=== PATIENT | male | born 1990 | race Caucasian/White ===

== ENCOUNTER 2017-11-12 03:15 | Inpatient (IN) | payer OTHER ==
[2017-11-12 04:00] LABS: Band 10 % (5-11); Hemoglobin 14.2 g/dL (14.0-18.0); Lymphocytes 17 % (21-51); MDiff Complete? YES; Mean Corpuscular Hemoglobin 31.6 pg (27.0-31.0); Mean Platelet Volume 6.4 fL (7.4-10.4); Monocytes 9 % (0-10); Neutrophil 64 % (42-75); PLT Morphology Comment Appears Adequate; Platelet Count 222 thou/uL (130-400); RBC Distribution Width 12.8 % (11.5-14.5); White Blood Cell (WBC) Count 8.9 thou/uL (4.8-10.8)
[2017-11-12 04:17] LABS: ALT (SGPT) 15 U/L (8-55); AST (SGOT) 20 U/L (5-34); Albumin 3.5 g/dL (3.5-5.0); Alkaline Phosphatase 105 U/L (40-150); Anion Gap 13 mmol/L (10-20); BUN (Urea Nitrogen) 11 mg/dL (8.9-20.6); Bilirubin, Total Less than 0.2 mg/dL (0.2-1.2); Calc. Creatinine Clearance 0 mL/min (70-130); Calcium 8.7 mg/dL (7.8-10.44); Carbon Dioxide 33 mmol/L (22-29); Chloride 88 mmol/L (98-107); Estimated GFR-MDRD Greater than 90; Globulin 3.9 g/dL (2.4-3.5); Glucose 111 mg/dL (70-105); Potassium 4.1 mmol/L (3.5-5.1); Protein, Total 7.4 g/dL (6.0-8.3); Sodium 130 mmol/L (136-145)
[2017-11-12] MEDS ORDERED: Piperacillin/Tazobactam 4.5 GM in Sodium Chloride 0.9% 100 ML IVPB SCH (05:15)
[2017-11-12] MEDS ORDERED: methylPREDNISolone Sod Succ/PF 125 MG/2 ML VIAL ONE (05:25)
[2017-11-12] MEDS ORDERED: Water For Inject, Bacteriostat 30 ML ONE (05:26)
[2017-11-12] MEDS ORDERED: Azithromycin 500 MG in Sodium Chloride 0.9% 250 ML 250 ML IVPB SCH (06:15)
[2017-11-12] MEDS ORDERED: Oseltamivir 75 MG CAP PO SCH (07:00)
[2017-11-12 08:52] VITALS: BMI 19.4
--- NOTE | 2017-11-12 09:58 | RAD ---
SINGLE VIEW OF THE CHEST: Comparison: 12-15-16 History: Cough. History of cystic fibrosis. FINDINGS: Single view of the chest shows a normal sized cardiomediastinal silhouette. Flattening of the hemidia phragms and increased interstitial markings are stable. There is no evidence of consolidation, mass, or pleural effusions. IMPRESSION: 1. No evidence of acute cardiopulmonary disease. 2. Flattening of the hemidiaphragms and increased interstitial markings are consistent with patient's diagnosis of cystic fibrosis. POS: DEB
[2017-11-12] MEDS ORDERED: Ondansetron HCl/PF 4 MG/2 ML Vial IVP PRN (12:07)
[2017-11-12] MEDS ORDERED: Ondansetron ODT 4 MG TAB PO PRN (12:07)
[2017-11-12] MEDS ORDERED: cefTRIAXone\\ROCEPHIN 1 GM in Sodium Chloride 0.9% 100 ML IVPB SCH (12:07)
[2017-11-12] MEDS ORDERED: Acetaminophen 650 MG Suppository PR PRN (12:07)
--- NOTE | 2017-11-12 14:21 | HP ---
DATE OF ADMISSION: 11/12/2017 PRIMARY CARE PROVIDER: [place] [facility]. CHIEF COMPLAINT: Shortness of breath and cough. HISTORY OF PRESENT ILLNESS: This is a 27-year-old male currently incarcerated at the [facility] unit who presented to the [facility] complaining of increased cough, congestion, and fever over the last 3 days. The patient became concerned when his shortness of breath worsened in the context of kn own cystic fibrosis. The patient states he generally has some type of lung infection once a year, us ually in the winter time requiring antibiotic therapy. The patient states he did receive the influen za and pneumonia vaccines and thought that he possibly could ride out the illness on his own. The pa lee denies any recent steroid exposure or recent antibiotic prescription. The patient denies any s pecific change to his chronic medication regimen. 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 The patient does admit to some body aches, general malai se and was evaluated in the [facility] at which point the patient was noted hypoxic on room air, place d on oxygen supplementation at 2-3 liters per minute. The patient's O2 saturation increased into the mid 90% range on 3 liters by nasal cannula. The patient received bronchodilator therapy with DuoNeb , Tylenol and was referred to [facility] Emergency Room for evaluation. Chest imaging perfo rmed in the emergency room showed chronic changes in bilateral lung jeffries consistent with cystic fib rosis. The patient was noted with a temperature of 99.2 degrees Fahrenheit with influenza A and B an tigen screen positive for influenza A. The patient received Tamiflu 75 mg x1 dose in addition to Zit hromax, Zosyn and Solu-Medrol. PAST MEDICAL HISTORY: 1. Cystic fibrosis. 2. Incarceration. 3. History of marijuana use. PAST SURGICAL HISTORY: Status post hernia repair. CURRENT MEDICATIONS: 1. Proventil HFA 2 puffs inhaled q.6 hours p.r.n. 2. Benzoyl peroxide 5% gel 1 application topically daily. 3. Calcium carbonate 1 tablet p.o. t.i.d. 4. Pulmozyme 2.5 mg inhaled b.i.d. 5. Atrovent HFA 2 puffs inhaled q.i.d. 6. Loratadine 10 mg p.o. daily. 7. Dulera 200 mcg/5 mcg 2 puffs inhaled b.i.d. 8. Multivitamin 1 tab p.o. daily. 9. Omeprazole 40 mg one tab p.o. daily. 10. Creon DR 12,000 one capsule p.o. t.i.d. with meals. 11. Hypersaline solution 4 mL inhaled b.i.d. ALLERGIES: To CIPROFLOXACIN, IBUPROFEN, DEMEROL. FAMILY HISTORY: No inheritable diseases per patient report. SOCIAL HISTORY: History of marijuana use. No current tobacco or alcohol use. Currently, incarcerat ed at the [facility]. REVIEW OF SYSTEMS: The following complete review of systems was negative, unless otherwise mentioned in the HPI or below: Constitutional: Weight loss or gain, ability to conduct usual activities. Skin: Rash, itching. Eyes: Double vision, pain. ENT/Mouth: Nose bleeding, neck stiffness, pain, tenderness. Cardiovascular: Palpitations, dyspnea on exertion, orthopnea. Respiratory: Shortness of breath, wheezing, cough, hemoptysis, fever or night sweats. Gastrointestinal: Poor appetite, abdominal pain, heartburn, nausea, vomiting, constipation, or diarr hea. Genitourinary: Urgency, frequency, dysuria, nocturia. Musculoskeletal: Pain, swelling. Neurologic/Psychiatric: Anxiety, depression. Allergy/Immunologic: Skin rash, bleeding tendency. PHYSICAL EXAMINATION: VITAL SIGNS: On admission, blood pressure 123/80, pulse 83, respiratory rate 19, temperature 99.2 de grees Fahrenheit, O2 saturation 95% on 2 liters per minute by nasal cannula. GENERAL APPEARANCE: This is a 27-year-old male, alert and oriented x3, pleasant, conversan t, in no acute distress. HEENT: Pupils are equal, round, and reactive to light and accommodation. Extraocular muscles are in tact. No scleral icterus, no conjunctival injection. Nares patent. OP is clear. Teeth in fair rep air. NECK: Supple, no cervical adenopathy, no thyromegaly, no carotid bruits, no JVD appreciated. Cervic al spine with full active and passive range of motion. CHEST: Diminished breath sounds in the bases bilaterally. Occasional scattered coarse breath sounds . CARDIOVASCULAR: S1, S2, without noted murmur. ABDOMEN: Flat, soft, nontender, nondistended. Bowel sounds are positive in all four quadrants. The re is no hepatosplenomegaly, no abdominal bruits, no rebound or guarding appreciated. EXTREMITIES: Warm and dry with fair turgor. No clubbing, cyanosis or asymmetric edema appreciated. Pulses palpable distally at the dorsalis pedis, posterior tibial, and popliteal arteries bilaterally . Capillary refill less than 2 seconds. NEUROLOGIC: Cranial nerves II through XII are grossly intact. No focal or lateralizing signs apprec iated. PERTINENT LABORATORY DATA AND X-RAY FINDINGS: Sodium 130, potassium 4.1, chloride 88, CO2 33, BUN 11 , creatinine 0.75, glucose 111, calcium 8.7. LFTs within normal limits. Albumin 3.5. CBC showed a white blood cell count of 8.9, hemoglobin 14, hematocrit 43, MCV 96, platelet count 222 with 64% neut rophils. Influenza A antigen positive on 11/12/2017. Portable chest x-ray dated 11/12/2017 showed c hronic changes in bilateral lung jeffries consistent with cystic fibrosis. EKG dated 11/12/2017 by my interpretation shows sinus mechanism with heart rate in the 80s. Attenuated R waves noted in the pre cordial leads. Normal axis. No acute ST-T wave changes appreciated. ASSESSMENT AND PLAN: 1. Acute hypoxic respiratory failure, mild. The patient will be admitted to the medical floor. We will continue oxygen supplementation to maintain O2 saturations greater than or equal to 90%. Contin ue bronchodilator therapy with DuoNeb q.4 hours. Suspect secondarily to #2. Continue general pulmon nilesh supportive measures. 2. Influenza A positive. Continue Tamiflu 75 mg p.o. b.i.d. Respiratory isolation. We will provid e empiric antibiotic coverage with IV Rocephin 1 gram q.24 hours with additional Zithromax 500 mg IV q.24 hours. 3. Cystic fibrosis. We will continue treatment as outlined in #1 and #2. Resume home regimen of Du carolee two puffs inhaled b.i.d. Continue Pulmozyme 2.5 mg inhaled b.i.d. 4. Hyponatremia. Chronic secondarily to cystic fibrosis. We will continue serial monitoring and re peat sodium level in the a.m. 5. Prophylaxis. Sequential compression devices while in bed. Pepcid 20 mg p.o. b.i.d. 6. Code status is full. Surrogate medical decision maker is [place] [facility].
[2017-11-12] MEDS: cefTRIAXone\\ROCEPHIN 1 GM, Syringe 0.4 ML in Sterile Water 9.6 ML SLOW IVP SCH (14:30)
[2017-11-12] MEDS: Calcium Carbonate + Vit D 1 TAB PO SCH ×2 (16:13→19:58)
[2017-11-12] MEDS: Benzonatate 100 MG CAP PO PRN (16:13)
[2017-11-12] MEDS: Acetaminophen 325 MG TAB PO PRN (16:45)
[2017-11-12] MEDS: Pancrelipase DR 12000 1 CAP PO SCH (16:46)
[2017-11-12] MEDS ORDERED: Pancrelipase DR 12000 1 CAP PO SCH (17:00)
[2017-11-12] MEDS: Famotidine 20 MG TAB PO SCH (19:58)
[2017-11-12] MEDS: Oseltamivir 75 MG CAP PO SCH (19:59)
[2017-11-12] MEDS ORDERED: DORNASE ALFA 2.5 MG NEB SCH (21:00)
[2017-11-12] MEDS ORDERED: [UNRECOGNIZED DRUG - OTHER] NEB SCH (21:00)
[2017-11-12] MEDS ORDERED: SODIUM CHLORIDE FOR INHALATION 7% NEB SCH (21:00)
[2017-11-12] MEDS: Mometasone/Formoterol 120 PUFF INHALER INH SCH (21:08)
[2017-11-13] MEDS: Acetaminophen 325 MG TAB PO PRN ×4 (00:28→20:34)
[2017-11-13 05:19] LABS: Band 17 % (5-11); Hemoglobin 13.7 g/dL (14.0-18.0); Lymphocytes 23 % (21-51); MDiff Complete? YES; Mean Corpuscular HGB CONC 31.1 g/dL (32.0-36.0); Mean Corpuscular Hemoglobin 30.5 pg (27.0-31.0); Mean Platelet Volume 6.6 fL (7.4-10.4); Monocytes 13 % (0-10); Neutrophil 46 % (42-75); Platelet Count 221 thou/uL (130-400); RBC Distribution Width 12.8 % (11.5-14.5); Red Blood Cell (RBC) Count 4.48 mill/uL (4.70-6.10); White Blood Cell (WBC) Count 9.4 thou/uL (4.8-10.8)
[2017-11-13 05:20] LABS: Anion Gap 10 mmol/L (10-20); BUN (Urea Nitrogen) 12 mg/dL (8.9-20.6); Calc. Creatinine Clearance 132 mL/min (70-130); Calcium 8.5 mg/dL (7.8-10.44); Carbon Dioxide 34 mmol/L (22-29); Chloride 96 mmol/L (98-107); Estimated GFR-MDRD Greater than 90; Glucose 108 mg/dL (70-105); Potassium 4.3 mmol/L (3.5-5.1); Sodium 136 mmol/L (136-145)
[2017-11-13] MEDS: Azithromycin 500 MG in Sodium Chloride 0.9% 250 ML 250 ML IVPB SCH (05:52)
[2017-11-13] MEDS: Mometasone/Formoterol 120 PUFF INHALER INH SCH ×2 (07:49→19:37)
[2017-11-13] MEDS: Pancrelipase DR 12000 1 CAP PO SCH ×3 (08:38→18:22)
[2017-11-13] MEDS: Loratadine 10 MG TAB PO SCH (08:39)
[2017-11-13] MEDS: Multivit, Therapeutic 1 TAB PO SCH (08:39)
[2017-11-13] MEDS: Calcium Carbonate + Vit D 1 TAB PO SCH ×3 (08:39→20:31)
[2017-11-13] MEDS: Famotidine 20 MG TAB PO SCH ×2 (08:39→20:31)
[2017-11-13] MEDS ORDERED: BENZOYL PEROXIDE TOP SCH (09:00)
[2017-11-13] MEDS: Oseltamivir 75 MG CAP PO SCH ×2 (13:01→20:32)
[2017-11-13] MEDS: cefTRIAXone\\ROCEPHIN 1 GM, Syringe 0.4 ML in Sterile Water 9.6 ML SLOW IVP SCH (13:01)
[2017-11-13] MEDS ORDERED: Sodium Chloride 0.65% Nasal 44 ML BOT EA NARE PRN (13:23)
--- NOTE | 2017-11-13 13:26 | PDOC.PN ---
- Subjective Encounter Start Date: 11/13/17 Encounter Start Time: 13:15 Subjective: f/u for Influenza A + on Tamiflu. States feeling a little better but -: coughing. + nasal bleeding on O2 NC. - Objective Resuscitation Status: Resuscitation Status FULL:Full Resuscitation MAR Reviewed: Yes Vital Signs & Weight: Vital Signs (12 hours) Temp Pulse Resp BP Pulse Ox 11/13/17 08:00 97.4 F L 84 16 107/73 95 11/13/17 07:49 76 18 95 11/13/17 04:48 95 11/13/17 04:00 97.8 F 65 18 106/68 98 11/13/17 01:59 73 18 95 Weight Admit Weight 124 lb 4.8 oz Weight 124 lb 4.8 oz I&O: 11/12/17 11/13/17 11/14/17 06:59 06:59 06:59 Intake Total 1160 Balance 1160 Result Diagrams: 11/13/17 04:09 11/13/17 04:09 Phys Exam - Physical Examination Constitutional: NAD no active epistaxis HEENT: PERRLA, oral pharynx no lesions Neck: no JVD, supple diminished bilat, exp wheezes Cardiovascular: RRR Gastrointestinal: soft, non-tender, no distention, positive bowel sounds Musculoskeletal: no edema, pulses present Neurological: normal sensation, moves all 4 limbs Psychiatric: A&O x 3 Skin: normal turgor, cap refill <2 seconds Dx/Plan (1) Acute respiratory failure with hypoxia Code(s): J96.01 - ACUTE RESPIRATORY FAILURE WITH HYPOXIA Status: Acute Comment: Secondary to #1, continue O2 supplementation weaning as tolerated (2) Influenza A Code(s): J10.1 - FLU DUE TO OTH IDENT INFLUENZA VIRUS W OTH RESP MANIFEST Status: Acute Comment: Continue Tamiflu 75mg BID (3) Cystic fibrosis Code(s): E84.9 - CYSTIC FIBROSIS, UNSPECIFIED Status: Chronic (4) Hyponatremia Code(s): E87.1 - HYPO-OSMOLALITY AND HYPONATREMIA Status: Acute Comment: Resolved with IVF's, monitor clinically (5) Mild epistaxis Code(s): R04.0 - EPISTAXIS Status: Acute Comment: Secondary to drying from O2 via NC, [place] mist nasal spray prn - Plan continue antibiotics, social services manager, out of bed/ambulate, DVT proph w/SCDs Stable overall -: Continue Zithromax and Rocephin empirically another 48h -: Add Solumedrol 40mg IV q6h -: [place] Nasal [place] prn -: AM lab: BMP, CBC * .
[2017-11-13] MEDS: Benzonatate 100 MG CAP PO PRN (16:29)
[2017-11-14 05:04] LABS: Band 7 % (5-11); Hemoglobin 13.7 g/dL (14.0-18.0); Lymphocytes 5 % (21-51); MDiff Complete? YES; Mean Corpuscular HGB CONC 30.5 g/dL (32.0-36.0); Mean Corpuscular Hemoglobin 30.4 pg (27.0-31.0); Mean Corpuscular Volume 99.6 fl (80.0-94.0); Neutrophil 87 % (42-75); Platelet Count 175 thou/uL (130-400); RBC Distribution Width 12.9 % (11.5-14.5); Reactive Lymphocytes 1 % (0-10); Red Blood Cell (RBC) Count 4.51 mill/uL (4.70-6.10); White Blood Cell (WBC) Count 5.9 thou/uL (4.8-10.8)
[2017-11-14 05:17] LABS: Anion Gap 14 mmol/L (10-20); BUN (Urea Nitrogen) 10 mg/dL (8.9-20.6); Calc. Creatinine Clearance 118 mL/min (70-130); Carbon Dioxide 34 mmol/L (22-29); Chloride 89 mmol/L (98-107); Estimated GFR-MDRD Greater than 90; Glucose 386 mg/dL (70-105); Potassium 5.1 mmol/L (3.5-5.1); Sodium 132 mmol/L (136-145)
[2017-11-14] MEDS: Acetaminophen 325 MG TAB PO PRN (06:04)
[2017-11-14] MEDS: Azithromycin 500 MG in Sodium Chloride 0.9% 250 ML 250 ML IVPB SCH (06:04)
[2017-11-14] MEDS: Mometasone/Formoterol 120 PUFF INHALER INH SCH ×3 (06:33→18:04)
[2017-11-14] MEDS: Pancrelipase DR 12000 1 CAP PO SCH ×3 (08:03→17:10)
[2017-11-14] MEDS: Calcium Carbonate + Vit D 1 TAB PO SCH ×3 (08:04→20:16)
[2017-11-14] MEDS: Loratadine 10 MG TAB PO SCH (08:04)
[2017-11-14] MEDS: Multivit, Therapeutic 1 TAB PO SCH (08:04)
[2017-11-14] MEDS: Famotidine 20 MG TAB PO SCH ×2 (08:04→20:17)
[2017-11-14] MEDS: Oseltamivir 75 MG CAP PO SCH ×2 (08:04→20:16)
--- NOTE | 2017-11-14 08:51 | PDOC.PN ---
- Subjective Encounter Start Date: 11/14/17 Encounter Start Time: 08:45 Subjective: f/u for Influenza A and hypoxia on O2 supplementation 2L/min NC. -: Currently on Tamiflu tolerating and states some improvement in dyspnea. -: + productive cough - Objective Resuscitation Status: Resuscitation Status FULL:Full Resuscitation MAR Reviewed: Yes Vital Signs & Weight: Vital Signs (12 hours) Temp Pulse Resp BP Pulse Ox 11/14/17 08:00 98 F 73 16 95 11/14/17 07:46 98 F 73 16 122/62 95 11/13/17 22:47 83 16 94 L Weight Admit Weight 124 lb 4.8 oz Weight 124 lb 4.8 oz I&O: 11/13/17 11/14/17 11/15/17 06:59 06:59 06:59 Intake Total 1160 720 Balance 1160 720 Result Diagrams: 11/14/17 04:15 11/14/17 04:15 Phys Exam - Physical Examination Constitutional: NAD HEENT: PERRLA, oral pharynx no lesions Neck: no JVD, supple diminished in bases with scattered coarse sounds Cardiovascular: RRR Gastrointestinal: soft, non-tender, no distention, positive bowel sounds Musculoskeletal: no edema, pulses present Neurological: normal sensation, moves all 4 limbs Psychiatric: A&O x 3 Skin: normal turgor, cap refill <2 seconds Dx/Plan (1) Acute respiratory failure with hypoxia Code(s): J96.01 - ACUTE RESPIRATORY FAILURE WITH HYPOXIA Status: Acute Comment: Secondary to #1, continue O2 supplementation weaning as tolerated (2) Influenza A Code(s): J10.1 - FLU DUE TO OTH IDENT INFLUENZA VIRUS W OTH RESP MANIFEST Status: Acute Comment: Continue Tamiflu 75mg BID (3) Cystic fibrosis Code(s): E84.9 - CYSTIC FIBROSIS, UNSPECIFIED Status: Chronic (4) Hyponatremia Code(s): E87.1 - HYPO-OSMOLALITY AND HYPONATREMIA Status: Acute Comment: Resolved with IVF's, monitor clinically (5) Mild epistaxis Code(s): R04.0 - EPISTAXIS Status: Acute Comment: Secondary to drying from O2 via NC, [place] mist nasal spray prn, Humidified O2 - Plan continue antibiotics, manager social work, respiratory therapy, DVT proph w/SCDs Stable overall -: Continue Tamiflu 75mg BID -: Continue Zithromax and Rocephin -: Add Mucinex DM BID -: Change to HiProtein Diet * Continue IVF's another 24h then d/c
[2017-11-14] MEDS ORDERED: guaiFENesin/DM ER PO SCH (10:15)
[2017-11-14] MEDS: traMADol HCl 50 MG TAB PO PRN ×2 (12:12→20:16)
[2017-11-14] MEDS: cefTRIAXone\\ROCEPHIN 1 GM, Syringe 0.4 ML in Sterile Water 9.6 ML SLOW IVP SCH (13:55)
[2017-11-14] MEDS: Benzonatate 100 MG CAP PO PRN (20:17)
[2017-11-14] MEDS: guaiFENesin/DM ER PO SCH (20:17)
[2017-11-15] MEDS: traMADol HCl 50 MG TAB PO PRN ×4 (02:40→23:39)
[2017-11-15] MEDS: Benzonatate 100 MG CAP PO PRN ×2 (02:40→20:29)
[2017-11-15] MEDS: Azithromycin 500 MG in Sodium Chloride 0.9% 250 ML 250 ML IVPB SCH (05:23)
[2017-11-15] MEDS: Mometasone/Formoterol 120 PUFF INHALER INH SCH ×2 (06:55→19:15)
[2017-11-15] MEDS: Pancrelipase DR 12000 1 CAP PO SCH ×3 (08:11→17:05)
[2017-11-15] MEDS: Multivit, Therapeutic 1 TAB PO SCH (08:13)
[2017-11-15] MEDS: guaiFENesin/DM ER PO SCH ×2 (08:13→20:30)
[2017-11-15] MEDS: Oseltamivir 75 MG CAP PO SCH ×2 (08:13→20:30)
[2017-11-15] MEDS: Calcium Carbonate + Vit D 1 TAB PO SCH ×3 (08:13→20:29)
[2017-11-15] MEDS: Famotidine 20 MG TAB PO SCH ×2 (08:13→20:29)
[2017-11-15] MEDS: Loratadine 10 MG TAB PO SCH (08:13)
[2017-11-15] MEDS ORDERED: Clopidogrel Bisulfate 75 MG TAB ONE (11:41)
[2017-11-15] MEDS: cefTRIAXone\\ROCEPHIN 1 GM, Syringe 0.4 ML in Sterile Water 9.6 ML SLOW IVP SCH (13:02)
--- NOTE | 2017-11-15 17:40 | PDOC.PN ---
- Subjective Encounter Start Date: 11/15/17 Encounter Start Time: 11:00 Subjective: nsg notes rev, russell ovn. pt with 2 guards at bedside. states he is SOB with -: ambulation to bathroom. requesting transfer to [place] if possible (CF -: specialists who know him there). Appetite improved. - Objective Resuscitation Status: Resuscitation Status FULL:Full Resuscitation MAR Reviewed: Yes Vital Signs & Weight: Vital Signs (12 hours) Temp Pulse Resp BP Pulse Ox 11/15/17 15:22 79 18 96 11/15/17 11:27 85 18 97 11/15/17 08:00 98.1 F 73 18 99 11/15/17 07:23 98.1 F 73 18 129/77 99 11/15/17 06:58 96 11/15/17 06:56 90 16 96 11/15/17 06:55 90 16 96 Weight Admit Weight 124 lb 4.8 oz Weight 124 lb 4.8 oz I&O: 11/14/17 11/15/17 11/16/17 06:59 06:59 06:59 Intake Total 720 1790 Balance 720 1790 Result Diagrams: 11/14/17 04:15 11/14/17 04:15 Phys Exam - Physical Examination Constitutional: NAD HEENT: PERRLA, moist MMs Neck: supple reasonable air mvmt, diminished sounds, coarse b/l Cardiovascular: RRR, no significant murmur, no rub Gastrointestinal: soft, non-tender, no distention, positive bowel sounds Musculoskeletal: no edema, pulses present Neurological: moves all 4 limbs Psychiatric: normal affect, A&O x 3 Dx/Plan (1) Influenza A Code(s): J10.1 - FLU DUE TO OTH IDENT INFLUENZA VIRUS W OTH RESP MANIFEST Status: Acute Comment: Continue Tamiflu 75mg BID, day 4 of 5 (2) Acute respiratory failure with hypoxia Code(s): J96.01 - ACUTE RESPIRATORY FAILURE WITH HYPOXIA Status: Acute Comment: Secondary to #1, continue O2 supplementation weaning as tolerated particularly with ambulation needs unable to have ANY NC requirement at senior care (3) Cystic fibrosis Code(s): E84.9 - CYSTIC FIBROSIS, UNSPECIFIED Status: Chronic Comment: Less concerning for exacerbation if able to wean off O2 empiric azithromycin (d4 of 5) and ceftriaxone d4 methylprednisolone 40mg IV q6H with SSI for anticipated medication induced hyperglycemia pt reports hx of recurrent exacerbation of CF with URIs requiring prolonged abx , steroids, and NC O2 will inquire regarding transfer (4) Hyponatremia Code(s): E87.1 - HYPO-OSMOLALITY AND HYPONATREMIA Status: Acute Comment: clinically stable, mentation stable recheck BMP in AM - Plan PO ad joanne -: activity OOB as keily -: DVT ppx enoxaparin * . Review of Systems - Medications/Allergies Allergies/Adverse Reactions: Allergies Allergy/AdvReac Type Severity Reaction Status Date / Time ciprofloxacin [From Cipro] Allergy Verified 11/12/17 05:04 ibuprofen Allergy Verified 11/12/17 05:04 meperidine [From Demerol] Allergy Verified 11/12/17 05:04 Medications: Current Medications Acetaminophen (Tylenol) 650 mg PO Q4H PRN PRN Reason: Headache/Fever or Pain Last Admin: 11/14/17 06:04 Dose: 650 mg Albuterol/Ipratropium (Duoneb) 3 ml NEB [id number] [facility] Last Admin: 11/15/17 15:22 Dose: 3 ml Lipase/Protease/Amylase ([place] [id number]) 8 cap PO TID-WM [facility] Last Admin: 11/15/17 17:05 Dose: 8 cap Benzonatate (Tessalon) 200 mg PO Q6H PRN PRN Reason: Cough Last Admin: 11/15/17 02:40 Dose: 200 mg Calcium/Vitamin D (Caltrate 600 + Vit D) 1 tab PO TID [facility] Last Admin: 11/15/17 17:04 Dose: 1 tab Famotidine (Pepcid) 20 mg PO BID [facility] Last Admin: 11/15/17 08:13 Dose: 20 mg Guaifenesin/Dextromethorphan (Mucinex Dm) 2 tab PO Q12HR [facility] Last Admin: 11/15/17 08:13 Dose: 2 tab Azithromycin 500 mg/ Sodium (Chloride) 250 mls @ 250 mls/hr IVPB 0600 [facility] Last Admin: 11/15/17 05:23 Dose: 250 mls Ceftriaxone Sodium 1 gm/ (Syringe 0.4 ml/ Sterile Water) 10 mls @ 120 mls/hr SLOW IVP 1300 [facility] Last Admin: 11/15/17 13:02 Dose: 10 mls Loratadine (Claritin) 10 mg PO DAILY [facility] Last Admin: 11/15/17 08:13 Dose: 10 mg Methylprednisolone Sodium Succinate (Solu-Medrol) 40 mg IVP Q6HR [facility] Last Admin: 11/15/17 17:08 Dose: 40 mg Mometasone Furoate/Formoterol Fumar (Dulera 200 Mcg/5 Mcg Inhaler) 2 puff INH BID-RT [facility] Last Admin: 11/15/17 06:55 Dose: 2 puff Multivitamins (Theragran) 1 tab PO DAILY [facility] Last Admin: 11/15/17 08:13 Dose: 1 tab Ondansetron HCl (Zofran Odt) 4 mg PO Q6H PRN PRN Reason: Nausea/Vomiting Ondansetron HCl (Zofran) 4 mg IVP Q6H PRN PRN Reason: Nausea/Vomiting Oseltamivir Phosphate (Tamiflu) 75 mg PO BID [facility] Stop: 11/17/17 09:01 Last Admin: 11/15/17 08:13 Dose: 75 mg Dornase Ambrocio 2.5 Mg 2.5 each NEB BID [facility] Sodium Chloride For Inhalation [Hyper- Dirk] 7% Solution 4 Ml 0 each NEB BID [facility] Sodium Chloride ([place] Nasal [place] 0.65%) 5 ml EA NARE TID PRN PRN Reason: Nasal Congestion Sodium Chloride (Flush - Normal Saline) 10 ml IVF PRN PRN PRN Reason: Saline Flush Last Admin: 11/15/17 05:23 Dose: 10 ml Tramadol HCl (Ultram) 50 mg PO Q6H PRN PRN Reason: Moderate to Severe Pain (6-10) Last Admin: 11/15/17 17:13 Dose: 50 mg
[2017-11-16] MEDS: Azithromycin 500 MG in Sodium Chloride 0.9% 250 ML 250 ML IVPB SCH (05:12)
[2017-11-16] MEDS: Benzonatate 100 MG CAP PO PRN ×2 (05:17→20:03)
[2017-11-16] MEDS: traMADol HCl 50 MG TAB PO PRN ×3 (05:17→19:05)
[2017-11-16 05:40] LABS: BUN (Urea Nitrogen) 11 mg/dL (8.9-20.6); Calc. Creatinine Clearance 141 mL/min (70-130); Calcium 9.4 mg/dL (7.8-10.44); Estimated GFR-MDRD Greater than 90; Glucose 253 mg/dL (70-105)
[2017-11-16 05:49] LABS: Anion Gap 17 mmol/L (10-20); Carbon Dioxide 32 mmol/L (22-29); Chloride 89 mmol/L (98-107); Potassium 4.8 mmol/L (3.5-5.1); Sodium 133 mmol/L (136-145)
[2017-11-16 06:17] LABS: Band 10 % (5-11); Hemoglobin 13.5 g/dL (14.0-18.0); Lymphocytes 3 % (21-51); MDiff Complete? YES; Mean Corpuscular Hemoglobin 30.6 pg (27.0-31.0); Mean Corpuscular Volume 98.6 fl (80.0-94.0); Mean Platelet Volume 6.9 fL (7.4-10.4); Monocytes 6 % (0-10); Neutrophil 81 % (42-75); Platelet Count 184 thou/uL (130-400); RBC Distribution Width 12.7 % (11.5-14.5); Red Blood Cell (RBC) Count 4.41 mill/uL (4.70-6.10); White Blood Cell (WBC) Count 17.9 thou/uL (4.8-10.8)
[2017-11-16] MEDS: Mometasone/Formoterol 120 PUFF INHALER INH SCH ×2 (07:24→18:55)
[2017-11-16] MEDS: Pancrelipase DR 12000 1 CAP PO SCH ×3 (08:32→17:25)
[2017-11-16] MEDS: Famotidine 20 MG TAB PO SCH ×2 (08:35→20:03)
[2017-11-16] MEDS: Enoxaparin Sodium 30 MG/0.3 ML SYRINGE SC SCH (08:35)
[2017-11-16] MEDS: Loratadine 10 MG TAB PO SCH (08:35)
[2017-11-16] MEDS: Multivit, Therapeutic 1 TAB PO SCH (08:35)
[2017-11-16] MEDS: Calcium Carbonate + Vit D 1 TAB PO SCH ×3 (08:35→20:03)
[2017-11-16] MEDS: Oseltamivir 75 MG CAP PO SCH ×2 (08:35→20:03)
[2017-11-16] MEDS: guaiFENesin/DM ER PO SCH ×2 (08:35→20:03)
--- NOTE | 2017-11-16 11:18 | PDOC.PN ---
- Subjective Encounter Start Date: 11/16/17 Encounter Start Time: 11:17 Subjective: nsg notes rev, russell ovn pt no new c/o, guards @ bedside -: c/o feeling warm and waking up with sweat on his neck this AM - Objective Resuscitation Status: Resuscitation Status FULL:Full Resuscitation Vital Signs & Weight: Vital Signs (12 hours) Temp Pulse Resp BP Pulse Ox 11/16/17 08:45 94 L 11/16/17 08:36 97.7 F 85 20 127/80 91 L 11/16/17 08:30 97.7 F 85 20 94 L 11/16/17 07:24 91 16 95 11/16/17 07:23 91 16 95 11/16/17 03:34 95 Weight Admit Weight 124 lb 4.8 oz Weight 124 lb 4.8 oz I&O: 11/15/17 11/16/17 11/17/17 06:59 06:59 06:59 Intake Total 1790 2100 Balance 1790 2100 Result Diagrams: 11/16/17 04:59 11/16/17 04:59 Phys Exam - Physical Examination Constitutional: NAD HEENT: PERRLA, moist MMs coarse throughout with scattered end exp wheezing Cardiovascular: RRR, no significant murmur, no rub Gastrointestinal: soft, positive bowel sounds Musculoskeletal: no edema, pulses present Neurological: moves all 4 limbs Psychiatric: normal affect, A&O x 3 Dx/Plan (1) Influenza A Code(s): J10.1 - FLU DUE TO OTH IDENT INFLUENZA VIRUS W OTH RESP MANIFEST Status: Acute Comment: Completed Tamiflu course (75mg PO BID x5d) (2) Acute respiratory failure with hypoxia Code(s): J96.01 - ACUTE RESPIRATORY FAILURE WITH HYPOXIA Status: Acute Comment: Secondary to #1, continue O2 supplementation weaning as tolerated particularly with ambulation needs unable to have ANY NC requirement at nursing home (3) Cystic fibrosis Code(s): E84.9 - CYSTIC FIBROSIS, UNSPECIFIED Status: Chronic Comment: Less concerning for exacerbation if able to wean off O2 empiric azithromycin (completed 5d course) and ceftriaxone d5 methylprednisolone 40mg IV q6H with SSI for anticipated medication induced hyperglycemia pt reports hx of recurrent exacerbation of CF with URIs requiring prolonged abx , steroids, and NC O2 will need to re-inquire re: transfer to [place] (4) Hyponatremia Code(s): E87.1 - HYPO-OSMOLALITY AND HYPONATREMIA Status: Acute Comment: clinically stable, mentation stable recheck BMP in AM - Plan cont current plan of care, continue antibiotics, PT/OT, respiratory therapy, incentive spirometry, out of bed/ambulate * . Review of Systems - Medications/Allergies Allergies/Adverse Reactions: Allergies Allergy/AdvReac Type Severity Reaction Status Date / Time ciprofloxacin [From Cipro] Allergy Verified 11/12/17 05:04 ibuprofen Allergy Verified 11/12/17 05:04 meperidine [From Demerol] Allergy Verified 11/12/17 05:04 Medications: Current Medications Acetaminophen (Tylenol) 650 mg PO Q4H PRN PRN Reason: Headache/Fever or Pain Last Admin: 11/14/17 06:04 Dose: 650 mg Albuterol/Ipratropium (Duoneb) 3 ml NEB [id number] [facility] Last Admin: 11/16/17 07:23 Dose: 3 ml Lipase/Protease/Amylase ([place] [id number]) 8 cap PO TID-WM [facility] Last Admin: 11/16/17 08:32 Dose: 8 cap Benzonatate (Tessalon) 200 mg PO Q6H PRN PRN Reason: Cough Last Admin: 11/16/17 05:17 Dose: 200 mg Calcium/Vitamin D (Caltrate 600 + Vit D) 1 tab PO TID [facility] Last Admin: 11/16/17 08:35 Dose: 1 tab Enoxaparin Sodium (Lovenox) 30 mg SC 0900 [facility] Last Admin: 11/16/17 08:35 Dose: Not Given Famotidine (Pepcid) 20 mg PO BID [facility] Last Admin: 11/16/17 08:35 Dose: 20 mg Guaifenesin/Dextromethorphan (Mucinex Dm) 2 tab PO Q12HR [facility] Last Admin: 11/16/17 08:35 Dose: 2 tab Azithromycin 500 mg/ Sodium (Chloride) 250 mls @ 250 mls/hr IVPB 0600 [facility] Last Admin: 11/16/17 05:12 Dose: 250 mls Ceftriaxone Sodium 1 gm/ (Syringe 0.4 ml/ Sterile Water) 10 mls @ 120 mls/hr SLOW IVP 1300 [facility] Last Admin: 11/15/17 13:02 Dose: 10 mls Loratadine (Claritin) 10 mg PO DAILY [facility] Last Admin: 11/16/17 08:35 Dose: 10 mg Methylprednisolone Sodium Succinate (Solu-Medrol) 40 mg IVP Q6HR [facility] Last Admin: 11/16/17 05:13 Dose: 40 mg Mometasone Furoate/Formoterol Fumar (Dulera 200 Mcg/5 Mcg Inhaler) 2 puff INH BID-RT [facility] Last Admin: 11/16/17 07:24 Dose: 2 puff Multivitamins (Theragran) 1 tab PO DAILY [facility] Last Admin: 11/16/17 08:35 Dose: 1 tab Ondansetron HCl (Zofran Odt) 4 mg PO Q6H PRN PRN Reason: Nausea/Vomiting Ondansetron HCl (Zofran) 4 mg IVP Q6H PRN PRN Reason: Nausea/Vomiting Oseltamivir Phosphate (Tamiflu) 75 mg PO BID [facility] Stop: 11/17/17 09:01 Last Admin: 11/16/17 08:35 Dose: 75 mg Dornase Ambrocio 2.5 Mg 2.5 each NEB BID [facility] Sodium Chloride For Inhalation [Hyper- Dirk] 7% Solution 4 Ml 0 each NEB BID [facility] Sodium Chloride ([place] Nasal [place] 0.65%) 5 ml EA NARE TID PRN PRN Reason: Nasal Congestion Sodium Chloride (Flush - Normal Saline) 10 ml IVF PRN PRN PRN Reason: Saline Flush Last Admin: 11/16/17 05:13 Dose: 10 ml Tramadol HCl (Ultram) 50 mg PO Q6H PRN PRN Reason: Moderate to Severe Pain (6-10) Last Admin: 11/16/17 05:17 Dose: 50 mg
[2017-11-16] MEDS: cefTRIAXone\\ROCEPHIN 1 GM, Syringe 0.4 ML in Sterile Water 9.6 ML SLOW IVP SCH (12:33)
[2017-11-17] MEDS: traMADol HCl 50 MG TAB PO PRN ×3 (02:06→14:45)
[2017-11-17] MEDS: Benzonatate 100 MG CAP PO PRN ×2 (02:06→08:39)
[2017-11-17] MEDS: Azithromycin 500 MG in Sodium Chloride 0.9% 250 ML 250 ML IVPB SCH (05:16)
[2017-11-17] MEDS: Mometasone/Formoterol 120 PUFF INHALER INH SCH ×2 (07:41→20:01)
[2017-11-17 08:28] LABS: BUN (Urea Nitrogen) 13 mg/dL (8.9-20.6); Calc. Creatinine Clearance 127 mL/min (70-130); Calcium 9.3 mg/dL (7.8-10.44); Estimated GFR-MDRD Greater than 90; Glucose 292 mg/dL (70-105)
[2017-11-17 08:30] LABS: #Lymphocytes 0.7 thou/uL (1.20-3.40); #Monocytes 0.7 thou/uL (0.11-0.59); #Neutrophils 14.9 thou/uL (1.40-6.50); %Basophils 0.1 % (0.0-1.0); %Eosinophils 0.1 % (0.0-10.0); %Lymphocytes 4.4 % (21.0-51.0); %Monocytes 4.5 % (0.0-10.0); Hemoglobin 14.1 g/dL (14.0-18.0); Mean Corpuscular HGB CONC 30.7 g/dL (32.0-36.0); Mean Corpuscular Hemoglobin 30.5 pg (27.0-31.0); Mean Corpuscular Volume 99.3 fl (80.0-94.0); Mean Platelet Volume 6.7 fL (7.4-10.4); Platelet Count 191 thou/uL (130-400); RBC Distribution Width 12.9 % (11.5-14.5); Red Blood Cell (RBC) Count 4.61 mill/uL (4.70-6.10); White Blood Cell (WBC) Count 16.4 thou/uL (4.8-10.8)
[2017-11-17 08:37] LABS: Anion Gap 19 mmol/L (10-20); Carbon Dioxide 35 mmol/L (22-29); Chloride 85 mmol/L (98-107); Potassium 4.7 mmol/L (3.5-5.1); Sodium 134 mmol/L (136-145)
[2017-11-17] MEDS: Multivit, Therapeutic 1 TAB PO SCH (08:38)
[2017-11-17] MEDS: Loratadine 10 MG TAB PO SCH (08:38)
[2017-11-17] MEDS: Calcium Carbonate + Vit D 1 TAB PO SCH ×3 (08:38→19:55)
[2017-11-17] MEDS: guaiFENesin/DM ER PO SCH ×2 (08:38→19:55)
[2017-11-17] MEDS: Famotidine 20 MG TAB PO SCH ×2 (08:39→19:55)
[2017-11-17] MEDS: Pancrelipase DR 12000 1 CAP PO SCH ×3 (08:39→17:24)
[2017-11-17] MEDS: Enoxaparin Sodium 30 MG/0.3 ML SYRINGE SC SCH ×2 (10:32→10:35)
[2017-11-17] MEDS: Oseltamivir 75 MG CAP PO SCH (10:33)
[2017-11-17] MEDS: cefTRIAXone\\ROCEPHIN 1 GM, Syringe 0.4 ML in Sterile Water 9.6 ML SLOW IVP SCH (13:17)
--- NOTE | 2017-11-17 14:35 | PDOC.PN ---
- Subjective Encounter Start Date: 11/17/17 Encounter Start Time: 14:32 Subjective: nsg notes rev, russell ovn 2 guards at bedside, no new c/o -: still SOB with short distance of abmulation (<20ft) - Objective Resuscitation Status: Resuscitation Status FULL:Full Resuscitation Vital Signs & Weight: Vital Signs (12 hours) Temp Pulse Resp BP Pulse Ox 11/17/17 11:00 98.0 F 99 16 123/75 99 11/17/17 07:45 97.9 F 85 16 122/74 90 L 11/17/17 07:29 80 13 94 L Weight Admit Weight 124 lb 4.8 oz Weight 124 lb 4.8 oz I&O: 11/16/17 11/17/17 11/18/17 06:59 06:59 06:59 Intake Total 2099 2099 Balance 2099 2099 Result Diagrams: 11/17/17 08:01 11/17/17 08:01 Phys Exam - Physical Examination Constitutional: NAD HEENT: PERRLA, moist MMs, sclera anicteric coarse and rhonchorous throughout with end expiratory wheezing Cardiovascular: RRR, no significant murmur, no rub Gastrointestinal: soft, non-tender, no distention, positive bowel sounds Musculoskeletal: no edema, pulses present Neurological: moves all 4 limbs Psychiatric: normal affect, A&O x 3 Dx/Plan (1) Influenza A Code(s): J10.1 - FLU DUE TO OTH IDENT INFLUENZA VIRUS W OTH RESP MANIFEST Status: Acute Comment: Completed Tamiflu course (75mg PO BID x5d) (2) Acute respiratory failure with hypoxia Code(s): J96.01 - ACUTE RESPIRATORY FAILURE WITH HYPOXIA Status: Acute Comment: Secondary to #1, continue O2 supplementation weaning as tolerated particularly with ambulation needs unable to have ANY NC requirement at senior living (3) Cystic fibrosis Code(s): E84.9 - CYSTIC FIBROSIS, UNSPECIFIED Status: Chronic Comment: with active wheezing and stalled respiratory improvement, difficulty down-titrating methylprednisolone. completed empiric course of azithromycin (5d) and continue ceftriaxone methylprednisolone 40mg IV q6H with SSI for anticipated medication induced hyperglycemia D/W Rebecca, Tool [employer] for [employer] and gave detailed clinical picture. She states she needs to speak with a physician before a [id number] discussion may be pursued. I have NOT received a [id number] call yet. (4) Hyponatremia Code(s): E87.1 - HYPO-OSMOLALITY AND HYPONATREMIA Status: Acute Comment: clinically stable, mentation stable recheck BMP in AM - Plan cont current plan of care, continue antibiotics, PT/OT, respiratory therapy, out of bed/ambulate * . Review of Systems - Medications/Allergies Allergies/Adverse Reactions: Allergies Allergy/AdvReac Type Severity Reaction Status Date / Time ciprofloxacin [From Cipro] Allergy Verified 11/12/17 05:04 ibuprofen Allergy Verified 11/12/17 05:04 meperidine [From Demerol] Allergy Verified 11/12/17 05:04 Medications: Current Medications Acetaminophen (Tylenol) 650 mg PO Q4H PRN PRN Reason: Headache/Fever or Pain Last Admin: 11/14/17 06:04 Dose: 650 mg Albuterol/Ipratropium (Duoneb) 3 ml NEB [id number] [facility] Last Admin: 11/17/17 11:42 Dose: 3 ml Lipase/Protease/Amylase ([place] [id number]) 8 cap PO TID-WM [facility] Last Admin: 11/17/17 13:10 Dose: 8 cap Benzonatate (Tessalon) 200 mg PO Q6H PRN PRN Reason: Cough Last Admin: 11/17/17 08:39 Dose: 200 mg Calcium/Vitamin D (Caltrate 600 + Vit D) 1 tab PO TID [facility] Last Admin: 11/17/17 08:38 Dose: 1 tab Enoxaparin Sodium (Lovenox) 30 mg SC 0900 [facility] Last Admin: 11/17/17 10:35 Dose: Not Given Famotidine (Pepcid) 20 mg PO BID [facility] Last Admin: 11/17/17 08:39 Dose: 20 mg Guaifenesin/Dextromethorphan (Mucinex Dm) 2 tab PO Q12HR [facility] Last Admin: 11/17/17 08:38 Dose: 2 tab Azithromycin 500 mg/ Sodium (Chloride) 250 mls @ 250 mls/hr IVPB 0600 [facility] Last Admin: 11/17/17 05:16 Dose: 250 mls Ceftriaxone Sodium 1 gm/ (Syringe 0.4 ml/ Sterile Water) 10 mls @ 120 mls/hr SLOW IVP 1300 [facility] Last Admin: 11/17/17 13:17 Dose: 10 mls Loratadine (Claritin) 10 mg PO DAILY [facility] Last Admin: 11/17/17 08:38 Dose: 10 mg Methylprednisolone Sodium Succinate (Solu-Medrol) 40 mg IVP Q6HR [facility] Last Admin: 11/17/17 13:10 Dose: 40 mg Mometasone Furoate/Formoterol Fumar (Dulera 200 Mcg/5 Mcg Inhaler) 2 puff INH BID-RT [facility] Last Admin: 11/17/17 07:41 Dose: 2 puff Multivitamins (Theragran) 1 tab PO DAILY [facility] Last Admin: 11/17/17 08:38 Dose: 1 tab Ondansetron HCl (Zofran Odt) 4 mg PO Q6H PRN PRN Reason: Nausea/Vomiting Ondansetron HCl (Zofran) 4 mg IVP Q6H PRN PRN Reason: Nausea/Vomiting Dornase Ambrocio 2.5 Mg 2.5 each NEB BID [place]ILLIANA Sodium Chloride For Inhalation [Hyper- Dirk] 7% Solution 4 Ml 0 each NEB BID [place] Sodium Chloride ([place] Nasal [place] 0.65%) 5 ml EA NARE TID PRN PRN Reason: Nasal Congestion Sodium Chloride (Flush - Normal Saline) 10 ml IVF PRN PRN PRN Reason: Saline Flush Last Admin: 11/17/17 05:16 Dose: 10 ml Tramadol HCl (Ultram) 50 mg PO Q6H PRN PRN Reason: Moderate to Severe Pain (6-10) Last Admin: 11/17/17 08:41 Dose: 50 mg
[2017-11-17] MEDS ORDERED: traMADol HCl 50 MG TAB PO PRN (14:48)
--- NOTE | 2017-11-17 17:23 | DIS ---
DATE OF ADMISSION: 11/12/2017 DATE OF DISCHARGE: 11/17/2017 DISCHARGE DIAGNOSES: 1. Influenza. 2. Cystic fibrosis. 3. Acute hypoxic respiratory failure. 4. Medication induced hyperglycemia secondary to steroid utilization. BRIEF SUMMARY OF HOSPITAL COURSE: This is a 27-year-old male with a known history of cystic fibrosis who initially presented with shortness of breath. Please see the original history and physical for full details surrounding his admission. The patient has a known history of cystic fibrosis without any recent exacerbations or issues related to the cystic fibrosis. In the emergency department, however, he was found to be influenza A positive (but Influenza B negative). The patient was admitted with hypoxic respiratory failure including pulse oximetry below 88% with exertion on admission. During admission, the patient has been started on Tamiflu 75 mg p.o. b.i.d., and has completed a 5-day course of this regimen at the time of discharge. He has also been empirically placed on Solu-Medrol 40 mg IV q.6 hours with sliding scale insulin as needed for medication induced hyperglycemia. The patient has also been placed on empiric azithromycin and ceftriaxone given his respiratory status. At the time of discharge, the patient has completed 5 days of azithromycin, continues on day 6 of ceftriaxone 1 mg daily. The patient's respiratory status is somewhat improved. He is down to 2 liters nasal cannula with mild exertion and at rest, will occasionally be able to be on room air for several hours before requiring oxygenation support. Other supporting medication for the patient at this point in time include tramadol for pain control, Dulera, Mucinex, Tessalon Perles, DuoNebs for symptomatic management. Remainder of chronic medical issues were stable during hospitalization. Medication reconciliation, please see the EMR for full details. At the time of discharge, the patient is being discharged to an inpatient facility and has continued on ceftriaxone 1 gram q.24 hours and methylprednisolone 40 mg IV q.6 hours. The patient is otherwise to continue his home medication regimen. LABORATORY AND IMAGING AT THE TIME OF DISCHARGE: On the day of discharge, the patient's CBC includes WBC 16.4, hemoglobin 14.1, hematocrit 45.8, platelets of 191, neutrophils percent 91.0, absolute count 14.9, lymphocytes 4.4%. Sodium 134, potassium 4.7, chloride 85, bicarbonate 35, BUN 13, creatinine 0.71, glucose 292. On 11/12/2017, chest x-ray demonstrates the following read "no evidence of acute cardiopulmonary disease. Flattening of the hemidiaphragms and increased interstitial markings are consistent with patient's diagnosis of cystic fibrosis." DISCHARGE PLAN AND INSTRUCTIONS: The patient is currently being discharged to [facility] for further evaluation and management of his respiratory issues. This has been discussed with the accepting physician. Thank you for asking me care for the patient. If you have any questions or concerns, please feel free to contact me at [facility]. NEETU
[2017-11-17 20:37] VITALS: BP 123/83; TEMP 98
--- NOTE | 2017-11-22 17:49 | EKG ---
Test Reason : Blood Pressure : / mmHG Vent. Rate : 083 BPM Atrial Rate : 083 BPM P-R Int : 102 ms QRS Dur : 078 ms QT Int : 374 ms P-R-T Axes : 069 082 068 degrees QTc Int : 439 ms Sinus rhythm with short MO Otherwise normal ECG Confirmed by ULISSES KNOX D.O. ([id number]), newspaper editor CEFERINO STARKS ([id number]) on 11/22/2017 5:48:10 PM Referred By: Confirmed By:ULISSES KNOX D.O.
== END 2017-11-17 22:45 | disposition short-term general hospital (02) | DRG 189 ==
LOC: ERS 03:15 → EEVIPCON 03:15 → ERHOLD 06:57 → T4-B 09:27
PROVIDERS: ADMIT Internal Medicine; ATTEND Internal Medicine
DX: J96.01 Acute respiratory failure with hypoxia (principal); E84.9 Cystic fibrosis, unspecified; E87.1 Hypo-osmolality and hyponatremia; J10.1 Influenza due to other identified influenza virus with other respiratory manifestations; Z79.51 Long term (current) use of inhaled steroids; Z88.6 Allergy status to analgesic agent; Z88.1 Allergy status to other antibiotic agents; Z88.5 Allergy status to narcotic agent; R73.9 Hyperglycemia, unspecified; T38.0X5A Adverse effect of glucocorticoids and synthetic analogues, initial encounter; R04.0 Epistaxis; F41.9 Anxiety disorder, unspecified
CPT/HCPCS: 36415; 71045; 80048; 80053; 85007; 85025; 85027; 87804; 93005; 94640; 94664; 94760; 96365; 96367; 96375; A4216; J0456; J0696; J1650; J2543; J2920; J2930; J3370; J7050; J7620